=== PATIENT | male | born 1955 ===

== ENCOUNTER 2022-02-17 07:45 | Inpatient (IN) | payer OTHER ==
[~2022-02-17] VITALS: Ht 177.8 cm; Wt 144.2 kg
[2022-02-17] MEDS ORDERED: LOSARTAN-HCTZ1 EAC1 PO (09:57)
[2022-02-17] MEDS ORDERED: SYNTHROID150 MCG PO (09:57)
[2022-02-17] MEDS ORDERED: [UNRECOGNIZED DRUG - CODE] PO (09:58)
[2022-02-17] MEDS ORDERED: ACID REDUCER20 M1 PO (09:59)
[2022-02-17] MEDS ORDERED: PROCARDIA PO (09:59)
[2022-02-17] MEDS ORDERED: VYTORIN 10-101 EACH PO (09:59)
[2022-02-17] MEDS ORDERED: ALLERGY RELIE15.8 ML (10:00)
[2022-02-17] MEDS ORDERED: CYCLOSPORINE (10:01)
[2022-02-17] MEDS ORDERED: ADULT LOW DOSE81 M1 PO (10:01)
[2022-02-23] MEDS ORDERED: RESTASIS1 EACH (11:13)
[2022-02-23] MEDS ORDERED: AMIODARONE HCL200 MG (11:14)
[2022-02-23] MEDS ORDERED: ADALAT CC30 MG (11:14)
[2022-02-23] MEDS ORDERED: ELIQUIS2.5 MG PO (16:53)
[2022-02-23] MEDS ORDERED: PERCOCET 5-3251 EACH PO (16:53)
[2022-02-23] MEDS ORDERED: CEFADROXIL500 MG PO (16:53)
== END 2022-02-23 18:54 | DRG 470 ==
LOC: SURG 02-21 06:28 → O/R 02-21 06:28 → SURG 02-21 07:45
PROVIDERS: ADMIT Orthopaedic Surgery; ATTEND Orthopaedic Surgery
PROC: 0SRD0J9 Replacement of Left Knee Joint with Synthetic Substitute, Cemented, Open Approach (ICD-10-PCS; principal; 2022-02-21 13:00)
DX: M17.12 Unilateral primary osteoarthritis, left knee (principal); D62 Acute posthemorrhagic anemia; M22.12 Recurrent subluxation of patella, left knee; I10 Essential (primary) hypertension; E03.9 Hypothyroidism, unspecified; G47.33 Obstructive sleep apnea (adult) (pediatric); E66.01 Morbid (severe) obesity due to excess calories; Z96.652 Presence of left artificial knee joint